=== PATIENT | female | born 1930 | race Caucasian/White ===

== ENCOUNTER → 2017-01-01 | Outpatient (CLI) | payer OTHER ==
[~2017-01-01] MED LIST: CEFUROXIME250 MG PO; CELEBREX 200MG200 MG PO; CITALOPRAM HBR20 MG PO; COLACE 100MG C100 MG PO; DIOVAN160 MG PO; DULCOLAX10 MG PR; ELIQUIS2.5 MG PO; IBANDRONATE SO150 MG PO; LANTUS100 UNIT/1 SQ; MECLIZINE HCL25 M1 PO; METFORMIN HCL500 MG PO; METOPROLOL SUC100 MG PO; NORCO 5-325 TA1 EACH PO; OMEPRAZOLE20 MG PO; OSCAL 500 + D TA1 EA PO; PRAVASTATIN SOD40 MG PO; SYNTHROID100 MCG PO; TYLENOL 325MG325 MG PO; VITAMIN B-1000 MCG/M SC
== END ==
LOC: KOH-I 14:57
DX: M79.605 Pain in left leg (principal)
CPT/HCPCS: 93971

== ENCOUNTER 2020-07-25 16:48 | Inpatient (IN) | payer OTHER ==
[~2020-07-25] VITALS: Ht 157.5 cm; Wt 59.0 kg
[2020-07-25 18:59] LABS: HEMOGLOBIN 10.3 gm/dl (12.3-15.3); RED BLOOD COUNT 3.24 M/UL (4.00-5.10); WHITE BLOOD COUNT 11.5 K/UL (4.5-11.0)
[2020-07-25] MEDS ORDERED: MACROBID 100 M100 MG PO (21:14)
[2020-07-25] MEDS ORDERED: LEVOTHYROXINE100 MCG PO (21:15)
[2020-07-25] MEDS ORDERED: CYANOCOBAL1000 MCG/1 INJ (21:15)
[2020-07-25] MEDS ORDERED: COREG 12.5MG12.5 MG PO (21:16)
[2020-07-25] MEDS ORDERED: LOSARTAN POTAS100 MG PO (21:16)
[2020-07-25] MEDS ORDERED: CITALOPRAM HBR40 MG PO (21:16)
[2020-07-25] MEDS ORDERED: DAILY VALUE1 EACH PO (21:18)
[2020-07-26 04:18] LABS: HEMOGLOBIN 9.3 gm/dl (12.3-15.3); WHITE BLOOD COUNT 9.5 K/UL (4.5-11.0)
[2020-07-26 04:22] LABS: RED BLOOD COUNT 2.9 M/UL (4.00-5.10)
[2020-07-28 10:59] LABS: HEMOGLOBIN 7.6 gm/dl (12.3-15.3); WHITE BLOOD COUNT 7.7 K/UL (4.5-11.0)
[2020-07-28 11:00] LABS: RED BLOOD COUNT 2.29 M/UL (4.00-5.10)
[2020-07-29 03:48] LABS: RED BLOOD COUNT 2.11 M/UL (4.00-5.10)
[2020-07-29 03:58] LABS: WHITE BLOOD COUNT 5.7 K/UL (4.5-11.0)
[2020-07-29 03:59] LABS: HEMOGLOBIN 6.7 gm/dl (12.3-15.3)
[2020-07-30 06:06] LABS: HEMOGLOBIN 10.6 gm/dl (12.3-15.3); WHITE BLOOD COUNT 6.9 K/UL (4.5-11.0)
[2020-07-30 06:07] LABS: RED BLOOD COUNT 3.38 M/UL (4.00-5.10)
--- NOTE | 2020-07-30 17:25 | NUR ---
patient request for another meal tray and informed dr. carolina and received order not to give patient another tray r/t elevated sugar. informed patien and he's not happy. education provided and need more instructions
[2020-07-31 03:12] LABS: HEMOGLOBIN 9.9 gm/dl (12.3-15.3); RED BLOOD COUNT 3.15 M/UL (4.00-5.10)
[2020-08-02 03:36] LABS: HEMOGLOBIN 9.5 gm/dl (12.3-15.3); RED BLOOD COUNT 3.06 M/UL (4.00-5.10); WHITE BLOOD COUNT 5.6 K/UL (4.5-11.0)
[2020-08-03 03:39] LABS: HEMOGLOBIN 9.4 gm/dl (12.3-15.3); RED BLOOD COUNT 2.99 M/UL (4.00-5.10)
[2020-08-05] MEDS ORDERED: HYDRALAZINE HCL25 MG PO (11:19)
[2020-08-05] MEDS ORDERED: POLYETHYLENE GL17 GM PO (11:19)
[2020-08-05] MEDS ORDERED: ENOXAPARIN40 MG/0.4 SC (11:19)
[2020-08-06 05:49] LABS: HEMOGLOBIN 9.3 gm/dl (12.3-15.3)
== END 2020-08-06 18:28 | DRG 481 ==
LOC: ER1 16:48 → CDU 19:03 → M/S 19:03
PROVIDERS: Emergency Medicine; Internal Medicine; Nurse Practitioner; Orthopaedic Surgery; Physician Assistant; ADMIT Internal Medicine
PROC: 0QSC04Z Reposition Left Lower Femur with Internal Fixation Device, Open Approach (ICD-10-PCS; principal; 2020-07-27 12:15)
PROC: 30233N1 Transfusion of Nonautologous Red Blood Cells into Peripheral Vein, Percutaneous Approach (ICD-10-PCS; 2020-07-29)
DX: M97.02XA Periprosthetic fracture around internal prosthetic left hip joint, initial encounter (principal); S72.402A Unspecified fracture of lower end of left femur, initial encounter for closed fracture; N17.9 Acute kidney failure, unspecified; D62 Acute posthemorrhagic anemia; W18.30XA Fall on same level, unspecified, initial encounter; I25.10 Atherosclerotic heart disease of native coronary artery without angina pectoris; E11.9 Type 2 diabetes mellitus without complications; E03.9 Hypothyroidism, unspecified; I12.9 Hypertensive chronic kidney disease with stage 1 through stage 4 chronic kidney disease, or unspecified chronic kidney disease; E11.22 Type 2 diabetes mellitus with diabetic chronic kidney disease; D64.9 Anemia, unspecified; Z96.652 Presence of left artificial knee joint; Z20.822 Contact with and (suspected) exposure to COVID-19; I16.0 Hypertensive urgency; R29.6 Repeated falls; N18.30 Chronic kidney disease, stage 3 unspecified; D69.6 Thrombocytopenia, unspecified; Y93.E1 Activity, personal bathing and showering; Y92.89 Other specified places as the place of occurrence of the external cause; Z95.1 Presence of aortocoronary bypass graft
CPT/HCPCS: ECHO; 36415; 36430; 70450; 71045; 73502; 73552; 76000; 80048; 80053; 82962; 83036; 83735; 83880; 85018; 85025; 85027; 85610; 85730; 86850; 86900; 86901; 86920; 93005; 93306; 94640; 94664; 94760; 96374; 96375; 97110; 97110-GP-CQ; 97161; 97166; 97530; 97530-GP-CQ; 99284; C1713; J0360; J0592; J0690; J1100; J1650; J2001; J2270; J2405; J2704; J2795; J7030; J7040; J7050; J7120; P9016; U0002